=== PATIENT | female | born 1960 | race Two or more races ===

== ENCOUNTER 2023-07-20 12:33 | Emergency (ER) | payer MEDICAID ==
[~2023-07-20] VITALS: Ht 165.1 cm; Wt 83.9 kg
[2023-07-20] MEDS ORDERED: KETOROLAC TROMETHAMINE 15 MG/ML VIAL ONE (13:29)
[2023-07-20] MEDS ORDERED: ONDANSETRON HCL/PF 4 MG/2 ML VIAL ONE (13:30)
[2023-07-20 13:44] LABS: BASOPHILS % (AUTO) 0.1 % (0.0-2.0); EOSINOPHILS # (AUTO) 0.1 K/uL (0.0-0.7); EOSINOPHILS % (AUTO) 0.9 % (0.0-6.0); HEMATOCRIT 41 % (33-45); LYMPHOCYTES # (AUTO) 0.3 K/uL (0.8-4.8); LYMPHOCYTES % (AUTO) 2.5 % (20.0-44.0); MEAN CORPUSCULAR HEMOGLOBIN 33 PG (26.0-33.0); MEAN CORPUSCULAR HGB CONC 34 g/dl (31.0-36.0); MEAN CORPUSCULAR VOLUME 95 fL (82-100); MONOCYTES # (AUTO) 0.4 K/uL (0.1-1.30); MONOCYTES % (AUTO) 2.8 % (2.0-12.0); NEUTROPHILS # (AUTO) 12.3 K/uL (1.8-8.9); NEUTROPHILS % (AUTO) 93.7 % (43.0-81.0); PLATELET COUNT (AUTO) 283 K/uL (150-450); RED BLOOD CELL COUNT(AUTO) 4.32 MIL/uL (4.0-5.2); RED CELL DISTRIBUTION WIDTH 13.5 % (11.5-15.0); WHITE BLOOD COUNT (AUTO) 13.1 K/uL (4.3-11.0)
[2023-07-20] MEDS: IV NS 0.9% 1,000 ML BAG IV ONE (13:47)
[2023-07-20] MEDS: KETOROLAC TROMETHAMINE 15 MG/ML VIAL IV ONE (13:48)
[2023-07-20] MEDS: ONDANSETRON HCL/PF 4 MG/2 ML VIAL IVP ONE (13:49)
[2023-07-20 13:58] LABS: ALBUMIN 3.7 g/dL (3.4-5.0); BILIRUBIN,DIRECT 0.1 mg/dL (0.0-0.2); BILIRUBIN,TOTAL 0.5 mg/dL (0.2-1.0); CALCIUM, SERUM 9.6 mg/dL (8.5-10.1); CREATININE 0.7 mg/dL (0.6-1.3); POTASSIUM 4.1 mmol/L (3.5-5.1); TOTAL PROTEIN, SERUM 8.1 g/dL (6.4-8.2)
[2023-07-20] MEDS ORDERED: CEFTRIAXONE 1GM BAG (ER ONLY) 50 ML IV ONE (14:01)
[2023-07-20] MEDS: CEFTRIAXONE 1GM BAG (ER ONLY) 1 GM/50 ML PIGGYBACK IV ONE (14:02)
[2023-07-20 14:05] LABS: APPEARANCE,URINE CLEAR (CLEAR); BILIRUBIN,URINE NEGATIVE (NEGATIVE); BLOOD, URINE NEGATIVE Ery/uL (NEGATIVE); COLOR,URINE ORANGE (YELLOW); KETONES,URINE 1+ mg/dL (NEGATIVE); LEUKOCYTE ESTERASE ,URINE TRACE (NEGATIVE); NITRITE, URINE POSITIVE (NEGATIVE); PH,URINE 6.5 (5.0-8.0); PROTEIN,URINE 1+ mg/dl (NEGATIVE); UGLUCOSE TRACE mg/dL (NEGATIVE)
[2023-07-20] MEDS ORDERED: IBUP-1953 PO ×2 (14:18→14:39)
[2023-07-20] MEDS ORDERED: CEPH500T PO ×2 (14:18→14:39)
[2023-07-20 14:23] LABS: ADD URINE CULTURE YES; BACTERIA,URINE 1+ /HPF (None Seen); RBC,URINE 0-2 /HPF (0-2); TRICHOMONAS,URINE None Seen /HPF (None Seen); YEAST,URINE None Seen /HPF (None Seen)
[2023-07-20 14:24] LABS: HYALINE CASTS, URINE Few /LPF (None Seen); MUCUS,URINE Few /LPF (None Seen)
[2023-07-20 14:52] VITALS: BP 129/64; TEMP 98.2; O2SAT 96
[2023-07-22] MEDS ORDERED: CYCL10TA9 PO (16:19)
[2023-07-22] MEDS ORDERED: ONDA4TAB11 PO (16:19)
[2023-07-22] MEDS ORDERED: ACET-2605 PO (16:19)
== END 2023-07-20 14:56 | disposition home or self-care (01) ==
LOC: ER 12:52
DX: N12 Tubulo-interstitial nephritis, not specified as acute or chronic (principal)
CPT/HCPCS: 99285; 74176; 96365; 96375; 85025; 80048; 87086; 83690; 80076; 81001; 36415; J2405; J7030; J0696; J1885

== ENCOUNTER → 2023-07-22 | Emergency (ER) | payer MEDICAID ==
[~2023-07-22] VITALS: Ht 165.1 cm; Wt 73.0 kg
[~2023-07-22] MED LIST: ACET-2605 PO; ACETAMINOPHEN ES 500 MG TABLET ONE; CEPH500T PO; CEPHALEXIN MONOHYDRATE 500 MG CAPSULE PO ONE; CYCL10TA9 PO; CYCLOBENZAPRINE 10 MG TABLET ONE; IBUP-1953 PO; KETOROLAC TROMETHAMINE 15 MG/ML VIAL ONE; ONDA4TAB11 PO; ONDANSETRON HCL/PF 4 MG/2 ML VIAL ONE
[2023-07-22 15:00] LABS: BASOPHILS % (AUTO) 0.3 % (0.0-2.0); EOSINOPHILS # (AUTO) 0.3 K/uL (0.0-0.7); EOSINOPHILS % (AUTO) 4.3 % (0.0-6.0); HEMATOCRIT 39 % (33-45); HEMOGLOBIN 13.2 g/dL (11.5-14.8); LYMPHOCYTES # (AUTO) 1.7 K/uL (0.8-4.8); LYMPHOCYTES % (AUTO) 23.8 % (20.0-44.0); MEAN CORPUSCULAR HEMOGLOBIN 32 PG (26.0-33.0); MEAN CORPUSCULAR HGB CONC 34 g/dl (31.0-36.0); MEAN CORPUSCULAR VOLUME 95 fL (82-100); MONOCYTES # (AUTO) 0.5 K/uL (0.1-1.30); NEUTROPHILS # (AUTO) 4.7 K/uL (1.8-8.9); NEUTROPHILS % (AUTO) 64.6 % (43.0-81.0); PLATELET COUNT (AUTO) 279 K/uL (150-450); RED CELL DISTRIBUTION WIDTH 13.2 % (11.5-15.0); WHITE BLOOD COUNT (AUTO) 7.3 K/uL (4.3-11.0)
[2023-07-22 15:01] LABS: APPEARANCE,URINE CLEAR (CLEAR); BILIRUBIN,URINE NEGATIVE (NEGATIVE); BLOOD, URINE NEGATIVE Ery/uL (NEGATIVE); COLOR,URINE YELLOW (YELLOW); KETONES,URINE NEGATIVE (NEGATIVE); LEUKOCYTE ESTERASE ,URINE NEGATIVE (NEGATIVE); NITRITE, URINE NEGATIVE (NEGATIVE); PROTEIN,URINE NEGATIVE (NEGATIVE); UGLUCOSE NEGATIVE (NEGATIVE); UROBILINOGEN,URINE 0.2 EU/dL (0.2)
[2023-07-22 15:15] LABS: CALCIUM, SERUM 9.6 mg/dL (8.5-10.1); CREATININE 0.6 mg/dL (0.6-1.3); POTASSIUM 3.6 mmol/L (3.5-5.1)
[2023-07-22 15:22] LABS: ALBUMIN 3.3 g/dL (3.4-5.0); BILIRUBIN,DIRECT 0.1 mg/dL (0.0-0.2); BILIRUBIN,TOTAL 0.4 mg/dL (0.2-1.0); TOTAL PROTEIN, SERUM 7.7 g/dL (6.4-8.2)
[2023-07-22] MEDS: ACETAMINOPHEN ES 500 MG TABLET PO ONE (15:53)
[2023-07-22] MEDS: CYCLOBENZAPRINE 10 MG TABLET PO ONE (15:53)
[2023-07-22] MEDS: KETOROLAC TROMETHAMINE 15 MG/ML VIAL IV ONE (15:55)
[2023-07-22] MEDS: ONDANSETRON HCL/PF - ER 4 MG/2 ML VIAL IV ONE (15:55)
[2023-07-22] MEDS: CEPHALEXIN MONOHYDRATE 500 MG CAPSULE PO ONE (16:55)
[2023-07-22 17:04] VITALS: BP 138/78; TEMP 98; O2SAT 97
== END | disposition home or self-care (01) ==
LOC: ER 13:50
DX: N12 Tubulo-interstitial nephritis, not specified as acute or chronic (principal); R30.0 Dysuria; R10.31 Right lower quadrant pain; R10.32 Left lower quadrant pain
CPT/HCPCS: 99284; 96374; 96375; 85025; 80048; 83690; 80076; 81003; 36415; J2405 ×2; J1885

== ENCOUNTER 2023-11-20 09:05 | Emergency (ER) | payer MEDICAID ==
[~2023-11-20] VITALS: Ht 165.1 cm; Wt 77.1 kg
[~2023-11-20 09:05] MED LIST changes: -ACETAMINOPHEN ES 500 MG TABLET ONE; -CEPHALEXIN MONOHYDRATE 500 MG CAPSULE PO ONE; -CYCLOBENZAPRINE 10 MG TABLET ONE; -KETOROLAC TROMETHAMINE 15 MG/ML VIAL ONE; -ONDANSETRON HCL/PF 4 MG/2 ML VIAL ONE
[2023-11-20 09:45] LABS: APPEARANCE,URINE CLEAR (CLEAR); BILIRUBIN,URINE NEGATIVE (NEGATIVE); BLOOD, URINE NEGATIVE Ery/uL (NEGATIVE); COLOR,URINE YELLOW (YELLOW); KETONES,URINE NEGATIVE (NEGATIVE); LEUKOCYTE ESTERASE ,URINE NEGATIVE (NEGATIVE); NITRITE, URINE NEGATIVE (NEGATIVE); PROTEIN,URINE NEGATIVE (NEGATIVE); UGLUCOSE NEGATIVE (NEGATIVE); UROBILINOGEN,URINE 0.2 EU/dL (0.2)
[2023-11-20] MEDS ORDERED: KETOROLAC TROMETHAMINE 15 MG/ML VIAL ONE (10:32)
[2023-11-20] MEDS ORDERED: ONDANSETRON HCL/PF 4 MG/2 ML VIAL ONE (10:32)
[2023-11-20 10:38] LABS: BASOPHILS # (AUTO) 0.1 K/uL (0.0-0.2); BASOPHILS % (AUTO) 0.9 % (0.0-2.0); EOSINOPHILS # (AUTO) 0.1 K/uL (0.0-0.7); EOSINOPHILS % (AUTO) 0.8 % (0.0-6.0); HEMATOCRIT 41 % (33-45); HEMOGLOBIN 13.8 g/dL (11.5-14.8); LYMPHOCYTES # (AUTO) 3.5 K/uL (0.8-4.8); LYMPHOCYTES % (AUTO) 42.3 % (20.0-44.0); MEAN CORPUSCULAR HEMOGLOBIN 33 PG (26.0-33.0); MEAN CORPUSCULAR HGB CONC 34 g/dl (31.0-36.0); MEAN CORPUSCULAR VOLUME 96 fL (82-100); MONOCYTES # (AUTO) 0.5 K/uL (0.1-1.30); MONOCYTES % (AUTO) 5.5 % (2.0-12.0); NEUTROPHILS # (AUTO) 4.2 K/uL (1.8-8.9); NEUTROPHILS % (AUTO) 50.5 % (43.0-81.0); PLATELET COUNT (AUTO) 271 K/uL (150-450); RED BLOOD CELL COUNT(AUTO) 4.24 MIL/uL (4.0-5.2); RED CELL DISTRIBUTION WIDTH 13.8 % (11.5-15.0); WHITE BLOOD COUNT (AUTO) 8.3 K/uL (4.3-11.0)
[2023-11-20 10:51] LABS: ALBUMIN 3.8 g/dL (3.4-5.0); BILIRUBIN,DIRECT 0.1 mg/dL (0.0-0.2); BILIRUBIN,TOTAL 0.3 mg/dL (0.2-1.0); CALCIUM, SERUM 9.3 mg/dL (8.5-10.1); CREATININE 0.5 mg/dL (0.6-1.3); POTASSIUM 4.2 mmol/L (3.5-5.1); TOTAL PROTEIN, SERUM 7.7 g/dL (6.4-8.2)
[2023-11-20] MEDS: IV NS 0.9% 1,000 ML BAG IV ONE (10:55)
[2023-11-20] MEDS: ONDANSETRON HCL/PF 4 MG/2 ML VIAL IV ONE (10:55)
[2023-11-20] MEDS: KETOROLAC TROMETHAMINE 15 MG/ML VIAL IV ONE (10:55)
[2023-11-20] MEDS ORDERED: CEFD300C3 PO (11:52)
[2023-11-20] MEDS ORDERED: IBUP-1955 PO (11:52)
[2023-11-20] MEDS ORDERED: PHEN-704 PO (11:52)
[2023-11-20 12:44] VITALS: BP 124/82; TEMP 98.3; O2SAT 97
== END 2023-11-20 12:45 | disposition home or self-care (01) ==
LOC: ER 09:10
DX: R10.30 Lower abdominal pain, unspecified (principal); N30.90 Cystitis, unspecified without hematuria; D25.9 Leiomyoma of uterus, unspecified; M54.50 Low back pain, unspecified; Z87.440 Personal history of urinary (tract) infections
CPT/HCPCS: 99285; 74176; 96374; 76856; 96361; 96375; 85025; 80048; 83690; 80076; 81003; 36415; J2405; J7030 ×2; J1885

== ENCOUNTER 2025-01-03 14:28 | Emergency (ER) | payer MEDICAID ==
[~2025-01-03] VITALS: Ht 162.6 cm; Wt 81.6 kg
[~2025-01-03 14:28] MED LIST changes: +CEFD300C3 PO; +IBUP-1955 PO; +PHEN-704 PO
[2025-01-03 14:37] VITALS: TEMP 98.5
[2025-01-03 15:22] LABS: PLATELET COUNT (AUTO) 279 K/uL (150-450); RED BLOOD CELL COUNT(AUTO) 4.23 MIL/uL (4.0-5.2); RED CELL DISTRIBUTION WIDTH 13.0 % (11.5-15.0); WHITE BLOOD COUNT (AUTO) 7.5 K/uL (4.3-11.0)
[2025-01-03 15:33] LABS: CALCIUM, SERUM 9.5 mg/dL (8.5-10.1); CREATININE 0.6 mg/dL (0.6-1.3); SODIUM SERUM 141 mmol/L (136-145); UREA NITROGEN, BLOOD 8 mg/dL (7-18)
[2025-01-03 15:48] LABS: ASPARTATE AMINOTRANSFERASE 18 U/L (15-37); NT-PRO BNP 82 pg/mL (0-125); TOTAL PROTEIN, SERUM 7.6 g/dL (6.4-8.2)
[2025-01-03] MEDS ORDERED: NITROGLYCERIN 0.4 MG/TAB BOTTLE ONE (16:32)
[2025-01-03] MEDS ORDERED: ASPIRIN 81 MG TAB.CHEW ONE (16:32)
[2025-01-03] MEDS: NITROGLYCERIN 0.4 MG/TAB BOTTLE SL ONE (16:35)
[2025-01-03] MEDS: ASPIRIN 81 MG TAB.CHEW PO ONE (16:35)
[2025-01-03] MEDS ORDERED: LEVO75TA99 PO (17:00)
[2025-01-03] MEDS ORDERED: [UNRECOGNIZED DRUG - CODE] PO (17:00)
[2025-01-03] MEDS ORDERED: VITA-354 PO (17:00)
[2025-01-03] MEDS ORDERED: BUSP10TA35 PO (17:00)
[2025-01-03] MEDS ORDERED: FEXO-65 PO (17:00)
[2025-01-03] MEDS ORDERED: ATOR20TA PO (17:00)
[2025-01-03] MEDS ORDERED: TRAZ-257 PO (17:00)
[2025-01-03] MEDS ORDERED: FLUT16SP16 BNOSTRILS (17:00)
[2025-01-03] MEDS ORDERED: BUPR150T10 PO (17:00)
[2025-01-03] MEDS ORDERED: OMEP40CA21 PO (17:00)
[2025-01-03 18:15] VITALS: BP 130/54; O2SAT 98
== END 2025-01-03 18:16 | disposition left against medical advice (07) ==
LOC: ER 14:28
DX: R07.89 Other chest pain (principal); R06.02 Shortness of breath; I21.3 ST elevation (STEMI) myocardial infarction of unspecified site; E78.5 Hyperlipidemia, unspecified; Z79.899 Other long term (current) drug therapy; Z87.891 Personal history of nicotine dependence
CPT/HCPCS: 36415; 71045-TC; 80048-TC; 80076-TC; 83880; 84484-TC; 85025-TC

== ENCOUNTER 2025-01-19 13:44 | Emergency (ER) | payer MEDICAID ==
[~2025-01-19] VITALS: Ht 165.1 cm; Wt 81.6 kg
[~2025-01-19 13:44] MED LIST changes: +ATOR20TA PO; +BUPR150T10 PO; +BUSP10TA35 PO; -CEFD300C3 PO; -CEPH500T PO; -CYCL10TA9 PO; +FEXO-65 PO; +FLUT16SP16 BNOSTRILS; -IBUP-1953 PO; +LEVO75TA99 PO; +OMEP40CA21 PO; -ONDA4TAB11 PO; -PHEN-704 PO; +TRAZ-257 PO; +VITA-354 PO; +[UNRECOGNIZED DRUG - CODE] PO
[2025-01-19] MEDS ORDERED: ACETAMINOPHEN 325 MG TABLET ONE (14:44)
[2025-01-19] MEDS: ACETAMINOPHEN 325 MG TABLET PO ONE (14:45)
[2025-01-19] MEDS: IV NS 0.9% 1,000 ML BAG IV ONE (14:45)
[2025-01-19 14:50] LABS: APPEARANCE,URINE CLEAR (CLEAR); BLOOD, URINE NEGATIVE Ery/uL (NEGATIVE); LEUKOCYTE ESTERASE ,URINE NEGATIVE (NEGATIVE); NITRITE, URINE NEGATIVE (NEGATIVE); UGLUCOSE NEGATIVE (NEGATIVE)
[2025-01-19] MEDS ORDERED: IV NS 0.9% 250 ML IV ONE (15:01)
[2025-01-19] MEDS ORDERED: IOHEXOL-300 100 ML VIAL IV ONE (15:01)
[2025-01-19 15:08] LABS: PLATELET COUNT (AUTO) 294 K/uL (150-450); RED BLOOD CELL COUNT(AUTO) 4.01 MIL/uL (4.0-5.2); RED CELL DISTRIBUTION WIDTH 13.1 % (11.5-15.0); WHITE BLOOD COUNT (AUTO) 10.1 K/uL (4.3-11.0)
[2025-01-19 15:25] LABS: CALCIUM, SERUM 9.2 mg/dL (8.5-10.1); CREATININE 0.7 mg/dL (0.6-1.3); SODIUM SERUM 143.0 mmol/L (136-145); UREA NITROGEN, BLOOD 7.0 mg/dL (7-18)
[2025-01-19 15:27] LABS: ASPARTATE AMINOTRANSFERASE 18.0 U/L (15-37); TOTAL PROTEIN, SERUM 7.8 g/dL (6.4-8.2)
[2025-01-19] MEDS ORDERED: BUSP5TAB3 PO (16:26)
[2025-01-19] MEDS ORDERED: HYDROCODONE/APAP 5/325MG TABLET ONE (16:27)
[2025-01-19] MEDS ORDERED: AMOX/CLAVULANATE 875 MG TABLET ONE (16:28)
[2025-01-19] MEDS: AMOX/CLAVULANATE 875 MG TABLET PO ONE (16:28)
[2025-01-19] MEDS: HYDROCODONE/APAP 5/325MG TABLET PO ONE (16:29)
[2025-01-19] MEDS ORDERED: IBUP-1953 PO (16:52)
[2025-01-19] MEDS ORDERED: HYDR-3973 PO (16:52)
[2025-01-19] MEDS ORDERED: NALO4SPR BNOSTRILS (16:52)
[2025-01-19] MEDS ORDERED: POLY119P PO (16:52)
[2025-01-19] MEDS ORDERED: AMOX-430 PO (16:52)
[2025-01-19 17:00] VITALS: BP 122/70; TEMP 98; O2SAT 97
== END 2025-01-19 17:01 | disposition home or self-care (01) ==
LOC: ER 13:47
DX: K57.32 Diverticulitis of large intestine without perforation or abscess without bleeding (principal); Z79.890 Hormone replacement therapy; Z79.899 Other long term (current) drug therapy; Z87.891 Personal history of nicotine dependence
CPT/HCPCS: 99285; 74177; 96360; 85025; 80048; 87086; 83690; 80076; 81003; 36415; J7030; J7050; Q9967